=== PATIENT | female | born 1940 | race Caucasian/White ===

== ENCOUNTER → 2023-09-30 | Day surgery (SDC) | payer MEDICARE, OTHER ==
[~2023-09-30] MED LIST: ACETAMINOPHEN 1000 MG/100 ML 100 ML IV ONE; AMLODIPINE BESYL5 MG PO; BOTULINUM TOXIN TYPE A 100 UNIT VIAL IM ONE; CO Q-10100 MG PO; CYMBALTA30 MG PO; DEXAMETHASONE SOD PHOS INJ 4 MG/ML SDV ONE; ELIQUIS5 MG PO; EPHEDRINE SULFATE INJ 50 MG/ML VIAL ONE; FENTANYL CITRATE/PF 100MCG/2 ML INJ ONE; FOLIC ACID0.4 MG PO; GLYCOPYRROLATE INJ 0.2 MG/ML VIAL ONE; IOPAMIDOL 610MG/1ML 300 MG/ML VIAL IV ONE; IRON PO; LIDOCAINE HCL 2% LOCAL INJ 5 ML SDV VIAL INJ ONE; LISINOPRIL10 MG PO; METFORMIN HCL500 MG PO; METHOTREXATE2.5 MG PO; MIDAZOLAM HCL 2 MG/2 ML VIAL ONE; ONDANSETRON HCL INJ 2MG/ML 2ML 2 MG/ML VIAL ONE; PANTOPRAZOLE SO40 MG PO; PLAQUENIL200 MG PO; PRAVASTATIN SOD20 MG PO; PREDNISONE5 MG PO; PROPOFOL IV EMULSION 10 MG/ML 20 ML VIAL ONE; SEVOFLURANE INHAL SOLN 250 ML PEN BTL ONE; TEMAZEPAM15 MG PO; TOPROL XL25 MG PO
[2023-09-30] MEDS: LACTATED RINGER'S 1,000 ML ONE (06:01)
[2023-09-30] MEDS: GENTAMICIN 80MG/NS 100 ML 100 ML IV ONE ×2 (06:02→06:03)
[2023-09-30 06:27] LABS: BASOPHILS # (AUTO) 0.1 (0.0-0.1); BASOPHILS % 0.9 % (0.0-1.0); EOSINOPHILS # (AUTO) 0.1 (0.0-0.4); EOSINOPHILS % 0.9 % (0.0-6.0); HEMOGLOBIN 11.9 g/dL (12.0-16.0); LYMPHOCYTES # (AUTO) 2.1 (1.0-3.2); LYMPHOCYTES % 22.6 % (18.0-39.1); MEAN CORPUSCULAR HEMOGLOBIN 27.7 pg (28-32); MEAN CORPUSCULAR HGB CONC 32.2 g/dL (31-35); MEAN CORPUSCULAR VOLUME 86.2 fL (81-99); MONOCYTES # (AUTO) 0.8 (0.2-0.8); NEUTROPHILS # (AUTO) 6.1 (2.1-6.9); NEUTROPHILS % 65.6 % (38.7-80.0); PLATELET COUNT 285 x10e3/uL (140-360); RED BLOOD COUNT 4.29 x10e6/uL (3.6-5.1); RED CELL DISTRIBUTION WIDTH 13.9 % (11.7-14.4)
[2023-09-30 06:42] LABS: ANION GAP 14.9 mmol/L (8-16); CALCIUM 9.3 mg/dL (8.4-10.2); CREATININE, SERUM 0.65 mg/dL (0.57-1.11)
[2023-09-30 06:44] LABS: POTASSIUM 2.9 mmol/L (3.5-5.1)
[2023-09-30 09:02] VITALS: BP 153/79; PULSE 73; RESP 18; O2SAT 98
== END | disposition home or self-care (01) ==
LOC: OR 05:29
PROVIDERS: ATTEND Urology
DX: N39.41 Urge incontinence (principal); N39.0 Urinary tract infection, site not specified; N32.89 Other specified disorders of bladder; N95.2 Postmenopausal atrophic vaginitis; N81.10 Cystocele, unspecified; N81.6 Rectocele; N36.41 Hypermobility of urethra; N39.44 Nocturnal enuresis; R80.9 Proteinuria, unspecified; R81 Glycosuria; N81.89 Other female genital prolapse; E11.9 Type 2 diabetes mellitus without complications; I10 Essential (primary) hypertension; I49.9 Cardiac arrhythmia, unspecified; E78.5 Hyperlipidemia, unspecified; K21.9 Gastro-esophageal reflux disease without esophagitis; M54.2 Cervicalgia; M54.9 Dorsalgia, unspecified; Z88.1 Allergy status to other antibiotic agents; Z79.02 Long term (current) use of antithrombotics/antiplatelets; Z79.84 Long term (current) use of oral hypoglycemic drugs; Z79.899 Other long term (current) drug therapy; Z86.73 Personal history of transient ischemic attack (TIA), and cerebral infarction without residual deficits; Z85.44 Personal history of malignant neoplasm of other female genital organs; Z86.12 Personal history of poliomyelitis; Z95.5 Presence of coronary angioplasty implant and graft; Z87.891 Personal history of nicotine dependence
CPT/HCPCS: 36415; 52005; 52287; 71046; 74420; 80048; 85025; 87086; C1758; J0131; J0587; J1100; J1580; J2001; J2250; J2405; J2704; J3010; J7121; Q9967

== ENCOUNTER → 2024-06-27 | Day surgery (SDC) | payer MEDICARE, OTHER ==
[2024-06-25 15:40] LABS: BASOPHILS # (AUTO) 0.1 (0.0-0.1); BASOPHILS % 0.7 % (0.0-1.0); EOSINOPHILS # (AUTO) 0.2 (0.0-0.4); EOSINOPHILS % 1.8 % (0.0-6.0); HEMATOCRIT 37.5 % (34.2-44.1); HEMOGLOBIN 11.6 g/dL (12.0-16.0); LYMPHOCYTES # (AUTO) 2.1 (1.0-3.2); MEAN CORPUSCULAR HEMOGLOBIN 25.4 pg (28-32); MEAN CORPUSCULAR HGB CONC 30.9 g/dL (31-35); MEAN CORPUSCULAR VOLUME 82.2 fL (81-99); MONOCYTES # (AUTO) 0.8 (0.2-0.8); NEUTROPHILS # (AUTO) 6.4 (2.1-6.9); NEUTROPHILS % 66.2 % (38.7-80.0); PLATELET COUNT 396 x10e3/uL (140-360); RED BLOOD COUNT 4.56 x10e6/uL (3.6-5.1); RED CELL DISTRIBUTION WIDTH 14.7 % (11.7-14.4); WHITE BLOOD COUNT 9.63 x10e3/uL (4.8-10.8)
[2024-06-25 16:11] LABS: ANION GAP 17.8 mmol/L (8-16); CALCIUM 10.1 mg/dL (8.4-10.2); CREATININE, SERUM 0.76 mg/dL (0.57-1.11); POTASSIUM 3.8 mmol/L (3.5-5.1)
[~2024-06-27] MED LIST changes: +CALCIUM PO; +CENTRUM PO; +FAMOTIDINE20 MG PO; +GENTAMICIN 80MG/NS 100 ML 200 ML IV ONE; +GLUCOTROL XL10 MG PO; -GLYCOPYRROLATE INJ 0.2 MG/ML VIAL ONE; +HYDROCODON-ACE1 EA12 PO; -IOPAMIDOL 610MG/1ML 300 MG/ML VIAL IV ONE; +LACTATED RINGER'S 1,000 ML ONE; -MIDAZOLAM HCL 2 MG/2 ML VIAL ONE; +NEURONTIN300 MG PO; -SEVOFLURANE INHAL SOLN 250 ML PEN BTL ONE; +VITAMIN B122500 MCG PO
[2024-06-27 13:35] VITALS: TEMP 98.7
[2024-06-27] MEDS: HYDRALAZINE HCL 20 MG/ML VIAL ONE (13:48)
[2024-06-27] MEDS: PHENAZOPYRIDINE HCL 100 MG TAB ONE (14:20)
[2024-06-27 15:05] VITALS: BP 169/70; PULSE 67; RESP 18; O2SAT 98
== END | disposition home or self-care (01) ==
LOC: OR 09:48
PROVIDERS: ATTEND Urology
DX: N39.41 Urge incontinence (principal); N39.0 Urinary tract infection, site not specified; N32.89 Other specified disorders of bladder; N81.10 Cystocele, unspecified; N81.6 Rectocele; N36.41 Hypermobility of urethra; N95.2 Postmenopausal atrophic vaginitis; I10 Essential (primary) hypertension; I48.91 Unspecified atrial fibrillation; E78.5 Hyperlipidemia, unspecified; K21.9 Gastro-esophageal reflux disease without esophagitis; R73.03 Prediabetes; H91.90 Unspecified hearing loss, unspecified ear; Z01.810 Encounter for preprocedural cardiovascular examination; Z01.812 Encounter for preprocedural laboratory examination; Z01.818 Encounter for other preprocedural examination; Z79.02 Long term (current) use of antithrombotics/antiplatelets; Z79.84 Long term (current) use of oral hypoglycemic drugs; Z79.899 Other long term (current) drug therapy; Z86.73 Personal history of transient ischemic attack (TIA), and cerebral infarction without residual deficits; Z85.44 Personal history of malignant neoplasm of other female genital organs
CPT/HCPCS: 36415; 52005; 52287; 71046; 74420; 80048; 85025; 87086; 93005; C1758; J0131; J0360; J0587; J1100; J1580; J2003; J2405; J2704; J3010; J7121

== ENCOUNTER → 2024-08-03 | Outpatient (REF) | payer MEDICARE, OTHER ==
[~2024-08-03] MED LIST changes: -ACETAMINOPHEN 1000 MG/100 ML 100 ML IV ONE; -BOTULINUM TOXIN TYPE A 100 UNIT VIAL IM ONE; -DEXAMETHASONE SOD PHOS INJ 4 MG/ML SDV ONE; -EPHEDRINE SULFATE INJ 50 MG/ML VIAL ONE; -FENTANYL CITRATE/PF 100MCG/2 ML INJ ONE; -GENTAMICIN 80MG/NS 100 ML 200 ML IV ONE; -LACTATED RINGER'S 1,000 ML ONE; -LIDOCAINE HCL 2% LOCAL INJ 5 ML SDV VIAL INJ ONE; -ONDANSETRON HCL INJ 2MG/ML 2ML 2 MG/ML VIAL ONE; -PROPOFOL IV EMULSION 10 MG/ML 20 ML VIAL ONE
== END ==
LOC: CARD 11:24
PROVIDERS: ATTEND Podiatrist Foot & Ankle Surgery
DX: I73.9 Peripheral vascular disease, unspecified (principal); L97.422 Non-pressure chronic ulcer of left heel and midfoot with fat layer exposed
CPT/HCPCS: 93922; 93925

== ENCOUNTER 2024-08-04 18:58 | Inpatient (IN) | payer MEDICARE, OTHER ==
[~2024-08-04] VITALS: Ht 152.4 cm; Wt 59.0 kg
[2024-08-04 19:18] VITALS: TEMP 98.4
[2024-08-04 19:38] LABS: BASOPHILS # (AUTO) 0.1 (0.0-0.1); BASOPHILS % 0.5 % (0.0-1.0); EOSINOPHILS # (AUTO) 0.1 (0.0-0.4); EOSINOPHILS % 0.9 % (0.0-6.0); HEMATOCRIT 38.8 % (34.2-44.1); HEMOGLOBIN 12.1 g/dL (12.0-16.0); LYMPHOCYTES # (AUTO) 0.7 (1.0-3.2); LYMPHOCYTES % 4.6 % (18.0-39.1); MEAN CORPUSCULAR HEMOGLOBIN 26.1 pg (28-32); MEAN CORPUSCULAR HGB CONC 31.2 g/dL (31-35); MEAN CORPUSCULAR VOLUME 83.8 fL (81-99); MONOCYTES # (AUTO) 0.8 (0.2-0.8); MONOCYTES % 5.6 % (4.4-11.3); NEUTROPHILS # (AUTO) 12.3 (2.1-6.9); NEUTROPHILS % 88.1 % (38.7-80.0); PLATELET COUNT 237 x10e3/uL (140-360); RED BLOOD COUNT 4.63 x10e6/uL (3.6-5.1); RED CELL DISTRIBUTION WIDTH 16.3 % (11.7-14.4); WHITE BLOOD COUNT 14.01 x10e3/uL (4.8-10.8)
[2024-08-04 19:49] LABS: INR 1.03; PROTHROMBIN TIME 14.1 seconds (11.9-14.5)
[2024-08-04 19:58] LABS: ALBUMIN 3.4 g/dL (3.5-5.0); ALBUMIN/GLOBULIN RATIO 1.1 (0.8-2.0); ANION GAP 15.2 mmol/L (8-16); BILIRUBIN,TOTAL 0.9 mg/dL (0.2-1.2); CALCIUM 9.2 mg/dL (8.4-10.2); CREATININE, SERUM 0.66 mg/dL (0.57-1.11); INFLUENZA A AG NEGATIVE (NEGATIVE); TOTAL PROTEIN 6.5 g/dL (6.5-8.1)
[2024-08-04 19:59] LABS: CORONAVIRUS COVID-19 AG NEGATIVE (NEGATIVE); INFLUENZA B AG NEGATIVE (NEGATIVE)
[2024-08-04] MEDS: SODIUM CHLORIDE 0.9% 1000ML 2,450 ML IV ONE (20:13)
[2024-08-04 20:20] LABS: POTASSIUM 3.2 mmol/L (3.5-5.1)
[2024-08-04] MEDS ORDERED: SODIUM CHLORIDE 0.9% 500ML 500 ML ONE (21:10)
[2024-08-04] MEDS ORDERED: SODIUM CHLORIDE 0.9% 1000ML 1,000 ML ONE (21:11)
[2024-08-04 21:49] LABS: BILIRUBIN,URINE NEGATIVE (NEGATIVE); CLARITY,URINE CLEAR (CLEAR); COLOR,URINE YELLOW (YELLOW); GLUCOSE, URINE 500 (NEGATIVE); KETONES,URINE 1+ (NEGATIVE); LEUKOCYTE ESTERASE ,URINE NEGATIVE (NEGATIVE); NITRITE,URINE NEGATIVE (NEGATIVE); PH,URINE 7.5 (5 - 7); PROTEIN,URINE DIPSTICK NEGATIVE (NEGATIVE); URINE UROBILINOGEN 0.2 mg/dL (0.2 - 1)
[2024-08-04 21:50] LABS: BACTERIA,URINE FEW /HPF; EPITHELIAL CELLS,URINE FEW /LPF; RENAL EPITHELIAL CELLS,URINE FEW; TRANSITIONAL EPI CELLS,URINE FEW
[2024-08-04] MEDS ORDERED: IOPAMIDOL 370 MG/ML 100 ML INFUS..BTL INJ ONE (21:53)
[2024-08-05] VITALS (12 sets, daily range): BP systolic 141–178; BP diastolic 54–73; PULSE 71–88; RESP 17–30; TEMP 98–98.8; O2SAT 94–100
[2024-08-05] MEDS: ACETAMINOPHEN 325 MG TAB PO ONE (00:13)
[2024-08-05] MEDS ORDERED: ONDANSETRON HCL INJ 2MG/ML 2ML 2 MG/ML VIAL IV PRN (00:45)
[2024-08-05] MEDS ORDERED: SODIUM CHLORIDE FLUSH 10 ML SYR INJ PRN (00:45)
[2024-08-05] MEDS: ACETAMINOPHEN 325 MG TAB PO PRN (09:33)
[2024-08-05] MEDS ORDERED: DEXTROSE 50% SYRINGE 50 ML IV PRN (11:45)
[2024-08-05] MEDS ORDERED: HYDROCODONE/APAP 7.5MG-325MG 1 EA TAB PO PRN (12:00)
[2024-08-05 12:13] LABS: TROPONIN I 0.023 ng/mL (0-0.300)
[2024-08-05] MEDS: PREDNISONE 5 MG TAB PO SCH (13:01)
[2024-08-05] MEDS: APIXABAN 5 MG TABLET PO SCH (17:34)
[2024-08-05] MEDS: METOPROLOL SUCCINATE 25 MG TAB XL PO SCH (17:35)
[2024-08-05] MEDS: INSULIN LISPRO 100 UNIT/1 ML 3ML VIAL SQ SCH (17:51)
[2024-08-05 18:06] LABS: TROPONIN I 0.02 ng/mL (0-0.300)
[2024-08-05] MEDS: PRAVASTATIN 20 MG TAB PO SCH (21:42)
[2024-08-05] MEDS: FAMOTIDINE 20 MG TAB PO SCH (21:42)
[2024-08-05] MEDS: LISINOPRIL 10 MG TAB PO SCH (21:43)
[2024-08-05] MEDS: TEMAZEPAM 15 MG CAP PO SCH (21:43)
[2024-08-05] MEDS: ALBUTEROL SULF 0.083% NEB SOLN 3 ML NEB NEB SCH (23:00)
[2024-08-06] VITALS (11 sets, daily range): BP systolic 127–159; BP diastolic 61–77; PULSE 55–94; RESP 16–19; TEMP 97.7–98.1; O2SAT 94–100
[2024-08-06 05:35] LABS: BASOPHILS % 0.8 % (0.0-1.0); EOSINOPHILS # (AUTO) 0.2 (0.0-0.4); EOSINOPHILS % 4.5 % (0.0-6.0); HEMATOCRIT 35.7 % (34.2-44.1); HEMOGLOBIN 11.1 g/dL (12.0-16.0); LYMPHOCYTES # (AUTO) 1.6 (1.0-3.2); MEAN CORPUSCULAR HEMOGLOBIN 26.2 pg (28-32); MEAN CORPUSCULAR HGB CONC 31.1 g/dL (31-35); MEAN CORPUSCULAR VOLUME 84.4 fL (81-99); MONOCYTES # (AUTO) 0.6 (0.2-0.8); MONOCYTES % 13.1 % (4.4-11.3); NEUTROPHILS # (AUTO) 2.4 (2.1-6.9); PLATELET COUNT 214 x10e3/uL (140-360); RED BLOOD COUNT 4.23 x10e6/uL (3.6-5.1); RED CELL DISTRIBUTION WIDTH 16.2 % (11.7-14.4); WHITE BLOOD COUNT 4.88 x10e3/uL (4.8-10.8)
[2024-08-06 06:22] LABS: ALBUMIN 2.9 g/dL (3.5-5.0); ANION GAP 13.1 mmol/L (8-16); BILIRUBIN,TOTAL 0.5 mg/dL (0.2-1.2); CALCIUM 9.6 mg/dL (8.4-10.2); CREATININE, SERUM 0.62 mg/dL (0.57-1.11); TOTAL PROTEIN 5.8 g/dL (6.5-8.1)
[2024-08-06 06:24] LABS: POTASSIUM 3.1 mmol/L (3.5-5.1)
[2024-08-06 07:17] LABS: TROPONIN I 0.016 ng/mL (0-0.300)
[2024-08-06] MEDS: DULOXETINE HCL 30 MG DELAYED RELEASE PO SCH (09:38)
[2024-08-06] MEDS: AMLODIPINE BESYLATE 5 MG TAB PO SCH (09:38)
[2024-08-06] MEDS: FOLIC ACID 1 MG TAB PO SCH (09:38)
[2024-08-06] MEDS: GABAPENTIN 300 MG CAP PO SCH (09:38)
[2024-08-06] MEDS: PANTOPRAZOLE SOD 40 MG TABEC PO SCH (09:38)
[2024-08-06] MEDS: GLIPIZIDE 5 MG TAB ER PO SCH (09:38)
[2024-08-06] MEDS: METFORMIN HCL 500 MG TAB PO SCH (22:27)
[2024-08-07] VITALS (7 sets, daily range): BP systolic 146–178; BP diastolic 65–77; PULSE 47–86; RESP 17–19; TEMP 97.5–98.2; O2SAT 93–98
[2024-08-07] MEDS: POTASSIUM CHLORIDE 20 MEQ TAB CR PO ONE (08:47)
== END 2024-08-07 13:29 | disposition home or self-care (01) | DRG 177 ==
LOC: ER 19:02 → ERHOLD 08-05 00:42 → MED/SURG2 08-05 02:27 → OBSVTOIN 08-06 10:21
PROVIDERS: ADMIT Internal Medicine; ATTEND Internal Medicine
DX: J69.0 Pneumonitis due to inhalation of food and vomit (principal); J96.01 Acute respiratory failure with hypoxia; N39.0 Urinary tract infection, site not specified; E11.9 Type 2 diabetes mellitus without complications; I10 Essential (primary) hypertension; I48.91 Unspecified atrial fibrillation; R41.82 Altered mental status, unspecified; E78.5 Hyperlipidemia, unspecified; K21.9 Gastro-esophageal reflux disease without esophagitis; R11.2 Nausea with vomiting, unspecified; M06.9 Rheumatoid arthritis, unspecified; Z11.52 Encounter for screening for COVID-19; Z79.84 Long term (current) use of oral hypoglycemic drugs; Z79.01 Long term (current) use of anticoagulants; Z79.52 Long term (current) use of systemic steroids
CPT/HCPCS: 36415; 70450; 71045; 71260; 80053; 81001; 82550; 82948; 83605; 83735; 84484; 85025; 85610; 85730; 87040; 87086; 93005; 94640; 94799; 99285; G0378; J0696; J2470; J2543; J7030; J7040; J7512; Q9967

== ENCOUNTER → 2024-10-24 | Day surgery (SDC) | payer MEDICARE, OTHER ==
[~2024-10-24] MED LIST changes: +ACETAMINOPHEN 1000 MG/100 ML 100 ML IV ONE; +BOTULINUM TOXIN TYPE A 100 UNIT VIAL IM ONE; +DEXAMETHASONE SOD PHOS INJ 4 MG/ML SDV ONE; +FENTANYL CITRATE/PF 100MCG/2 ML INJ ONE; +GENTAMICIN 80MG/NS 100 ML 200 ML IV ONE; +LACTATED RINGER'S 1,000 ML ONE; +LIDOCAINE HCL 2% LOCAL INJ 5 ML SDV VIAL INJ ONE; +ONDANSETRON HCL INJ 2MG/ML 2ML 2 MG/ML VIAL ONE; +PROPOFOL IV EMULSION 10 MG/ML 20 ML VIAL ONE; +SEVOFLURANE INHAL SOLN 250 ML PEN BTL ONE
[2024-10-24 09:31] LABS: BASOPHILS # (AUTO) 0.1 (0.0-0.1); BASOPHILS % 0.9 % (0.0-1.0); EOSINOPHILS # (AUTO) 0.3 (0.0-0.4); EOSINOPHILS % 2.9 % (0.0-6.0); HEMATOCRIT 36.3 % (34.2-44.1); HEMOGLOBIN 11.3 g/dL (12.0-16.0); LYMPHOCYTES # (AUTO) 2.2 (1.0-3.2); MEAN CORPUSCULAR HEMOGLOBIN 26.3 pg (28-32); MEAN CORPUSCULAR HGB CONC 31.1 g/dL (31-35); MEAN CORPUSCULAR VOLUME 84.6 fL (81-99); MONOCYTES % 10.6 % (4.4-11.3); NEUTROPHILS # (AUTO) 5.8 (2.1-6.9); NEUTROPHILS % 62.3 % (38.7-80.0); PLATELET COUNT 292 x10e3/uL (140-360); RED BLOOD COUNT 4.29 x10e6/uL (3.6-5.1); RED CELL DISTRIBUTION WIDTH 16.6 % (11.7-14.4); WHITE BLOOD COUNT 9.33 x10e3/uL (4.8-10.8)
[2024-10-24 09:43] LABS: ANION GAP 14.2 mmol/L (8-16); CALCIUM 9.2 mg/dL (8.4-10.2); CREATININE, SERUM 0.58 mg/dL (0.57-1.11)
[2024-10-24 09:45] LABS: POTASSIUM 3.2 mmol/L (3.5-5.1)
[2024-10-24] MEDS: HYDRALAZINE HCL 20 MG/ML VIAL ONE (12:20)
[2024-10-24 13:05] VITALS: BP 180/89; PULSE 76; RESP 16; O2SAT 98
== END | disposition home or self-care (01) ==
LOC: OR 08:41
PROVIDERS: ATTEND Urology
DX: N39.41 Urge incontinence (principal); N39.0 Urinary tract infection, site not specified; N32.3 Diverticulum of bladder; N81.10 Cystocele, unspecified; N81.6 Rectocele; N36.41 Hypermobility of urethra; N95.2 Postmenopausal atrophic vaginitis; N32.89 Other specified disorders of bladder; I10 Essential (primary) hypertension; E78.5 Hyperlipidemia, unspecified; I49.9 Cardiac arrhythmia, unspecified; E11.9 Type 2 diabetes mellitus without complications; K21.9 Gastro-esophageal reflux disease without esophagitis; M06.9 Rheumatoid arthritis, unspecified; Z99.3 Dependence on wheelchair; Z79.02 Long term (current) use of antithrombotics/antiplatelets; Z79.84 Long term (current) use of oral hypoglycemic drugs; Z79.899 Other long term (current) drug therapy; Z86.73 Personal history of transient ischemic attack (TIA), and cerebral infarction without residual deficits
CPT/HCPCS: 36415; 74420; 80048; 82948; 85025; 87086; 87186; C1758; J0360; J0587; J1100; J1580; J2003; J2405

== ENCOUNTER 2024-12-21 08:02 | Emergency (ER) | payer MEDICARE, OTHER ==
[~2024-12-21] VITALS: Ht 152.4 cm; Wt 56.7 kg
[~2024-12-21 08:02] MED LIST changes: -ACETAMINOPHEN 1000 MG/100 ML 100 ML IV ONE; -BOTULINUM TOXIN TYPE A 100 UNIT VIAL IM ONE; -DEXAMETHASONE SOD PHOS INJ 4 MG/ML SDV ONE; -FENTANYL CITRATE/PF 100MCG/2 ML INJ ONE; -GENTAMICIN 80MG/NS 100 ML 200 ML IV ONE; -LACTATED RINGER'S 1,000 ML ONE; -LIDOCAINE HCL 2% LOCAL INJ 5 ML SDV VIAL INJ ONE; -ONDANSETRON HCL INJ 2MG/ML 2ML 2 MG/ML VIAL ONE; -PROPOFOL IV EMULSION 10 MG/ML 20 ML VIAL ONE; -SEVOFLURANE INHAL SOLN 250 ML PEN BTL ONE
[2024-12-21 08:51] LABS: BASOPHILS % 0.8 % (0.0-1.0); EOSINOPHILS % 2.0 % (0.0-6.0); LYMPHOCYTES % 21.3 % (18.0-39.1); MONOCYTES % 6.1 % (4.4-11.3); NEUTROPHILS % 69.1 % (38.7-80.0); RED CELL DISTRIBUTION WIDTH 15.9 % (11.7-14.4)
[2024-12-21 09:12] LABS: EST GLOMERULAR FILTRATION RATE 87.0 ML/MIN (>=60)
[2024-12-21] MEDS ORDERED: SODIUM CHLORIDE 0.9% 1000ML 1,000 ML ONE (09:15)
[2024-12-21] MEDS: CEFEPIME 2 GM in SODIUM CHLORIDE 0.9% 100 ML IV SCH (09:18)
[2024-12-21] MEDS: SODIUM CHLORIDE 0.9% 1000ML 1,000 ML IV SCH (09:19)
[2024-12-21] MEDS ORDERED: IOPAMIDOL 370 MG/ML 100 ML INFUS..BTL INJ ONE (09:54)
[2024-12-21] MEDS: Vancomycin IV 1 GM in SODIUM CHLORIDE 0.9% 250ML 250 ML IV ONE (09:58)
[2024-12-21 12:17] VITALS: TEMP 97.9
[2024-12-21] MEDS ORDERED: ALBUTEROL0.63 MG/3 NEB (12:19)
[2024-12-21] MEDS ORDERED: DOXYCYCLINE HY100 MG PO (12:20)
[2024-12-21] MEDS ORDERED: CEFDINIR300 MG PO (12:20)
[2024-12-21 12:25] VITALS: PULSE 89; RESP 22; O2SAT 97
== END 2024-12-21 12:30 | disposition home or self-care (01) ==
LOC: ER 08:10
DX: R06.02 Shortness of breath (principal); J18.9 Pneumonia, unspecified organism; I10 Essential (primary) hypertension; E11.65 Type 2 diabetes mellitus with hyperglycemia; E78.5 Hyperlipidemia, unspecified; R94.31 Abnormal electrocardiogram [ECG] [EKG]; Z86.12 Personal history of poliomyelitis; Z96.611 Presence of right artificial shoulder joint
CPT/HCPCS: 36415; 71045; 71260; 80053; 83605; 83880; 84484; 85025; 85379; 87040; 93005; 99284; J0692; J3373; J7030; J7050 ×2; Q9967